=== PATIENT | female | born 1985 | race Caucasian/White ===

== ENCOUNTER → 2024-04-06 | Outpatient (CLI) | payer OTHER ==
[2024-04-06 11:55] LABS: FREE T4 1.16 NG/DL (0.89-1.76); THYROID STIMULATING HORMONE 1.459 uIU/ML (0.55-4.78)
== END ==
LOC: M LAB 10:54
PROVIDERS: ATTEND Internal Medicine
DX: E03.9 Hypothyroidism, unspecified (principal)

== ENCOUNTER → 2024-04-20 | Outpatient (CLI) | payer OTHER | LOC: M RAD 07:36 | PROVIDERS: ATTEND Advanced Practice Midwife | DX: Z34.92 Encounter for supervision of normal pregnancy, unspecified, second trimester (principal); Z36.2 Encounter for other antenatal screening follow-up; Z3A.00 Weeks of gestation of pregnancy not specified ==

== ENCOUNTER → 2024-05-17 | Outpatient (CLI) | payer OTHER ==
[2024-05-17 08:52] LABS: HIV 1&2 SCREEN NEGATIVE (NEGATIVE)
[2024-05-17 09:00] LABS: HEPATITIS C VIRUS ABY INDEX < 0.02 INDEX (<0.8)
[2024-05-17 10:18] LABS: GC DNA AMPLIFICATION NEGATIVE (NEGATIVE)
== END ==
LOC: M LAB 06:47
PROVIDERS: ATTEND Obstetrics & Gynecology
DX: O09.522 Supervision of elderly multigravida, second trimester (principal); Z3A.00 Weeks of gestation of pregnancy not specified

== ENCOUNTER → 2024-05-22 | Outpatient (CLI) | payer OTHER ==
[2024-05-22 16:35] LABS: FREE T4 1.03 NG/DL (0.89-1.76); THYROID STIMULATING HORMONE 1.688 uIU/ML (0.55-4.78)
== END ==
LOC: M PLALAB 11:00
PROVIDERS: ATTEND Internal Medicine
DX: E03.9 Hypothyroidism, unspecified (principal)

== ENCOUNTER → 2024-07-31 | Outpatient (REF) | payer OTHER | LOC: M SFHCWAGY 12:20 | PROVIDERS: ATTEND Specialist | DX: Z36.89 Encounter for other specified antenatal screening (principal); Z3A.36 36 weeks gestation of pregnancy ==

== ENCOUNTER 2024-08-31 03:43 | Inpatient (IN) | payer OTHER ==
[~2024-08-31] VITALS: Ht 177.8 cm; Wt 98.6 kg
[2024-08-31] MEDS ORDERED: CARBOPROST TROMETHAMINE 250 MCG/ML AMP IM PRN (04:10)
[2024-08-31] MEDS ORDERED: OXYTOCIN INJ 10UNITS/ML 1ML VIAL IM PRN (04:10)
[2024-08-31] MEDS ORDERED: OXYTOCIN DRIP 30 UNITS in IV 1 EA IV PRN (04:10)
[2024-08-31] MEDS ORDERED: TRANEXAMIC ACID INJection 1,000 MG in NS 100 ML IV PRN (04:10)
[2024-08-31] MEDS ORDERED: OXYTOCIN 30UNITS IN 0.9% NaCl 500ML IV BAG As Ordered ONE (04:16)
[2024-08-31] MEDS ORDERED: OXYTOCIN INJ 10UNITS/ML 1ML VIAL As Ordered ONE (04:16)
[2024-08-31] MEDS ORDERED: LEVO88TA3 PO (04:25)
[2024-08-31] MEDS ORDERED: HOME MED LIST COMPLETE! XX SCH (04:25)
[2024-08-31] MEDS ORDERED: ASPI81CH33 PO (04:25)
[2024-08-31] MEDS ORDERED: PRENTAB9 PO (04:25)
[2024-08-31 04:34] LABS: HEMATOCRIT 43.5 % (36.0-47.0); HEMOGLOBIN 15.4 g/dl (12.0-15.5); MEAN CORPUSCULAR HGB CONC 35.4 g/dl (32.0-36.5); MEAN CORPUSCULAR VOLUME 93.1 fl (80.0-96.0); PLATELET COUNT, AUTOMATED 235 10^3/uL (150-450); RED BLOOD COUNT 4.67 10^6/uL (4.00-5.40); WHITE BLOOD COUNT 10.9 10^3/uL (4.0-10.0)
[2024-08-31 04:42] VITALS: BP 130/89
[2024-08-31] MEDS: OXYTOCIN DRIP 30 UNITS in IV 1 EA IV PRN (04:54)
[2024-08-31] MEDS: LIDOCAINE 1% MDV 20ML VIAL INFIL PRN (04:54)
[2024-08-31] MEDS: METHYLERGONOVINE MALEATE 0.2MG/ML 1ML VIAL IM PRN (04:55)
[2024-08-31] MEDS ORDERED: ACETAMINOPHEN 325 MG TAB PO PRN (05:15)
[2024-08-31] MEDS ORDERED: METHYLERGONOVINE MALEATE 0.2 MG TAB PO PRN (05:15)
[2024-08-31] MEDS ORDERED: RHOGAM 300MCG (1500IU) INJ IM SCH (05:15)
[2024-08-31 07:20] VITALS: BP 134/77; O2SAT 95
[2024-08-31] MEDS: PRENATAL VITAMINS CHEWABLE TABLET PO SCH (09:00)
[2024-08-31] MEDS: DOCUSATE SODIUM 100MG CAPSULE PO PRN (11:17)
[2024-08-31] MEDS: DIBUCAINE 1% OINTMENT 30GM TOP PRN (11:17)
[2024-08-31] MEDS: IBUPROFEN 800 MG TAB PO PRN (11:18)
[2024-08-31 18:00] VITALS: BP 127/73; O2SAT 98
[2024-08-31 19:00] LABS: HEPATITIS C VIRUS ABY INDEX < 0.02 INDEX (<0.8)
[2024-09-01] MEDS: ACETAMINOPHEN 500 MG TAB PO PRN (00:49)
[2024-09-01] MEDS: IBUPROFEN 600MG TAB PO PRN (05:25)
[2024-09-01 06:00] VITALS: BP 126/73; O2SAT 97
[2024-09-01] MEDS ORDERED: IBUP80TA PO (07:55)
[2024-09-01] MEDS ORDERED: ACET-683 PO (07:55)
[2024-09-01] MEDS ORDERED: COLA100C5 PO (08:38)
[2024-09-01] MEDS ORDERED: DIBU28OI2 TOP (09:06)
[2024-09-02] MEDS ORDERED: MEASLES,MUMPS,RUBELLA VACCINE INJ (MMR-II) SC.IMMUN ONE (09:00)
== END 2024-09-01 13:15 | disposition home or self-care (01) | DRG 807 ==
LOC: M LDO 03:43 → M LDI 04:08 → M OBS 07:15
PROVIDERS: ADMIT Advanced Practice Midwife; ATTEND Advanced Practice Midwife
PROC: 10E0XZZ Delivery of Products of Conception, External Approach (ICD-10-PCS; principal; 2024-08-31)
PROC: 0KQM0ZZ Repair Perineum Muscle, Open Approach (ICD-10-PCS; 2024-08-31)
PROC: 10907ZC Drainage of Amniotic Fluid, Therapeutic from Products of Conception, Via Natural or Artificial Opening (ICD-10-PCS; 2024-08-31)
DX: O24.420 Gestational diabetes mellitus in childbirth, diet controlled (principal); Z37.0 Single live birth; Z3A.40 40 weeks gestation of pregnancy; O69.81X0 Labor and delivery complicated by cord around neck, without compression, not applicable or unspecified; O70.1 Second degree perineal laceration during delivery

== ENCOUNTER → 2024-10-17 | Outpatient (CLI) | payer OTHER ==
[~2024-10-17] MED LIST: ACET-683 PO; ASPI81CH33 PO; COLA100C5 PO; DIBU28OI2 TOP; IBUP80TA PO; LEVO88TA3 PO; PRENTAB9 PO
[2024-10-17 13:20] LABS: THYROID STIMULATING HORMONE 1.688 uIU/ML (0.55-4.78)
[2024-10-17 13:21] LABS: FREE T4 1.22 NG/DL (0.89-1.76)
== END ==
LOC: M LAB 11:52
PROVIDERS: ATTEND Internal Medicine
DX: E03.9 Hypothyroidism, unspecified (principal)

== ENCOUNTER → 2024-12-15 | Outpatient (REF) | payer OTHER ==
[2024-12-19 12:37] LABS: HPV APTIMA Not Detected (Not Detected)
== END ==
LOC: M SFHCWAGY 14:56
PROVIDERS: ATTEND Advanced Practice Midwife
DX: Z12.4 Encounter for screening for malignant neoplasm of cervix (principal)
CPT/HCPCS: 87624; G0123